=== PATIENT | male | born 1970 | race Caucasian/White ===

== ENCOUNTER 2022-07-04 06:56 | Day surgery (SDC) | payer OTHER, SELFPAY ==
[2022-04-21 09:05] VITALS: BMI 27.4
[2022-06-23 08:08] VITALS: BMI 27.6
--- NOTE | 2022-07-01 12:36 | WPDANESEPPF ---
Anes - Initial Pre Proc Eval Procedure: Operation Date: 07/04/22 08:30 Proposed Procedures p Screening Colonoscopy - Chano Araujo MD Date/Time: 07/01/22 12:36 Surgeon: Chano Araujo MD Pre Op Diagnosis: Neoplasm Screening Patient Data Age: 52 Gender: M Height: 1.78 m Weight: 87.5 kg Allergies Allergy/AdvReac Type Severity Reaction Status Date / Time No Known Allergies Allergy Mild Verified 07/04/22 07:15 Home Medications Medication Instructions Recorded Confirmed Type allopurinol 300 mg tablet 300 mg PO DAILY #90 tabs 01/07/22 07/04/22 Rx aspirin 81 mg tablet 81 mg PO DAILY 06/23/22 07/04/22 History lysine 500 mg tablet 500 mg PO DAILY 06/23/22 07/04/22 History Patient hx anesthesia problems: none Family hx anesthesia problems: none Results Review: All pre-operative results and documents have been reviewed as part of the pre-operative evaluation. [facility] Past Medical History Medical History (Updated 07/04/22 @ 07:17 by Vini Palmer DO) Arrhythmia Dyslipidemia Gout Migraines Family History Family History Mother Patient's mother is in good health Father Patient's father is in good health Grandparent Family history of type 2 diabetes mellitus Other Diabetes mellitus Social History Social History (Updated 01/07/22 @ 14:17 by Fidelina Schofield NP) Social History: Smoking status: Never smoker Second hand tobacco smoke exposure: No Alcohol intake: current Alcohol use details: rare Substance use: never Substance use type: does not use Living arrangements: with family Occupation/Education: occupation Gender identity (if verbalized by the patient): Male Sexual Orientation (if Verbalized by the Patient): Straight or Heterosexual Spiritual care concerns: No Anes - Eval Final PreProcedure Day of Procedure 07/01/22 12:36 Patient weight: overweight Heart: regular rate and rhythm Lungs: clear to auscultation Airway: Mallampati scale class II Neurological: alert and oriented Last oral intake: >/= 8 hours ASA classification: II Emergent: no Anesthetic plan: proceed Anesthesia type and monitoring: general GIVS and standard monitoring Results Review: All pre-operative results and documents have been reviewed as part of the pre-operative evaluation. Informed Consent: The patient's anesthetic plan and its attendant risks and benefits were discussed with the patient/family/POA. Questions were solicited and answers provided to the satisfaction of the patient/family/POA.
[2022-07-04 07:10] VITALS: BP 125/93; PULSE 68; RESP 16; TEMP 36.8; O2SAT 100
[2022-07-04] MEDS: LACTATED RINGERS 1,000 ML 150 ML IV CONT (07:26)
--- NOTE | 2022-07-04 08:21 | PM.HPGS ---
History of Present Illness History of Present Illness Consent: Risks, benefits, and alternatives have been discussed and questions answered. Patient agrees to proceed with procedure. Chief complaint: Neoplasm Screening Narrative: Stan Moore is a 52 year old male here for screening colonoscopy (had one about 10 years ago but does not remember reason) Review of Systems Constitutional: Constitutional: Denies headache(s) and Denies weakness Eyes: Eyes: Denies blurry vision ENT: Reports Normal hearing present, Denies headache(s) and Denies neck pain Cardiovascular: Cardiovascular: Denies chest pain and Denies dyspnea Respiratory: Respiratory: Denies dyspnea Gastrointestinal: Gastrointestinal: Reports no additional gastrointestinal complaints Genitourinary: Genitourinary: Denies dysuria Musculoskeletal: Musculoskeletal: Denies neck pain Integumentary/Breasts: Skin/Breast: Denies dry skin Neurologic: Reports Normal hearing present, Denies headache(s) and Denies weakness Psychiatric: Psychiatric: Denies anxiety Endocrine: Endocrine: Denies change in body appearance Hematologic/Lymphatic: Hematologic/Lymphatic: Denies easy bleeding Allergic/Immunologic: Allergic/Immunologic: Denies urticaria PMFSH Past Medical History Medical History (Updated 07/04/22 @ 07:17 by Vini Palmer DO) Arrhythmia Dyslipidemia Gout Migraines Family History Family History Mother Patient's mother is in good health Father Patient's father is in good health Grandparent Family history of type 2 diabetes mellitus Other Diabetes mellitus Social History Social History (Updated 01/07/22 @ 14:17 by Fidelina Schofield NP) Social History: Smoking status: Never smoker Second hand tobacco smoke exposure: No Alcohol intake: current Alcohol use details: rare Substance use: never Substance use type: does not use Living arrangements: with family Occupation/Education: occupation Gender identity (if verbalized by the patient): Male Sexual Orientation (if Verbalized by the Patient): Straight or Heterosexual Spiritual care concerns: No Meds Home Medications and Allergies Home Medications Medication Instructions Recorded Confirmed Type allopurinol 300 mg tablet 300 mg PO DAILY #90 tabs 01/07/22 07/04/22 Rx aspirin 81 mg tablet 81 mg PO DAILY 06/23/22 07/04/22 History lysine 500 mg tablet 500 mg PO DAILY 06/23/22 07/04/22 History Allergies Allergy/AdvReac Type Severity Reaction Status Date / Time No Known Allergies Allergy Mild Verified 07/04/22 07:15 Vital Signs Vital Signs - 24 hr 07/04/22 07:10 Temperature 98.3 F Pulse Rate 68 Respiratory Rate 16 Blood Pressure 125/93 H Pulse Oximetry 100 Oxygen Delivery Room Air Exam Const: General: comfortable and no acute distress HENMT: Face/Nose/Sinus: Normal nares present Eyes: General: appearance normal, both eyes and all related structures Neck: Neck: no JVD Resp: Auscultation: clear to auscultation bilaterally Cardio: Rate: regular rate Rhythm: regular rhythm GI: Inspection: non-distended GI Palp: Yes Soft to palpation Skin: General skin exam: normal color Neuro: General: gait normal Speech: normal speech Extrem: General: normal to inspection Psych: Mental Status: mental status grossly normal Assessment and Plan Assessment and plan (1) Colon cancer screening: Code(s): Z12.11 - Encounter for screening for malignant neoplasm of colon Status: Acute Assessment and Plan: colonoscopy
[2022-07-04 08:44] VITALS: BP 122/85; PULSE 67; RESP 18; O2SAT 99
[2022-07-04 08:54] VITALS: BP 125/87; PULSE 58; RESP 16; O2SAT 99
[2022-07-04 09:04] VITALS: BP 125/93; PULSE 67; RESP 18; O2SAT 100
--- NOTE | 2022-07-04 12:52 | WPDANESPN ---
Anes - Prog Note Post-Op Date/Time: 07/04/22 12:52 Cardiovascular status: normal Respiratory status: normal Airway patency: baseline Mental status: baseline Post-Op hydration status: normal Vital Signs: Last Vital Signs Temp 36.8 C 07/04/22 07:10 Pulse 67 07/04/22 09:04 Resp 18 07/04/22 09:04 BP 125/93 H 07/04/22 09:04 Pulse Ox 100 07/04/22 09:04 O2 Del Method Room Air 07/04/22 09:04 Pain Score (VAS): 0 I/O: Intake & Output 07/03/22 07/04/22 07/04/22 23:59 07:59 15:59 Intake Total 560 Balance 560 Post-procedural complaints: none Patient Feedback: Patient satisfied with anesthetic care. Other Findings: Patient vital signs back to baseline. Patient denies nausea and vomiting. Patient's pain under control. Patient OK for discharge.
== END 2022-07-04 09:25 | disposition home or self-care (01) ==
PROVIDERS: PCP Family Medicine; Visit Provider Internal Medicine Gastroenterology
PROC: 0DJD8ZZ Inspection of Lower Intestinal Tract, Via Natural or Artificial Opening Endoscopic (ICD-10-PCS; CPT 45378; principal; 2022-07-04 08:30)
DX: Z12.11 Encounter for screening for malignant neoplasm of colon (principal)
CPT/HCPCS: 45385; 45380

== ENCOUNTER 2022-07-04 07:00 | Outpatient (NON) | payer OTHER, SELFPAY | END 2022-07-04 07:01 | disposition home or self-care (01) | LOC: ANHLAB 07-05 12:38 | PROVIDERS: PCP Family Medicine; Visit Provider Internal Medicine Gastroenterology | DX: D12.2 Benign neoplasm of ascending colon (principal); D12.3 Benign neoplasm of transverse colon | CPT/HCPCS: 88305 ==